=== PATIENT | male | born 1970 ===

== ENCOUNTER 2018-10-15 09:44 | Day surgery (SDC) | payer OTHER ==
[2018-10-11 08:36] VITALS: BMI 29.1
[2018-10-15] MEDS ORDERED: Clindamycin 600mg/50ml NS 0 MG/0 ML BAG IVPB ONE (10:45)
[2018-10-15] MEDS ORDERED: Lidocaine/Epinephrine 1% 1:100000 10 ML IJ ONE (10:45)
[2018-10-15] MEDS ORDERED: Bupivacaine 0.25% 20 ML INJ IJ ONE (10:46)
[2018-10-15] MEDS ORDERED: Midazolam 2 MG/2 ML VIAL ONE (11:03)
[2018-10-15] MEDS ORDERED: Propofol 10 mg/ml Inj (20 ML) ONE ×2 (11:04→11:25)
[2018-10-15] MEDS ORDERED: Vancomycin 1 gm/D5W 200 ml 1 GM/200 ML BAG IVPB ONE (11:07)
[2018-10-15] MEDS ORDERED: Lidocaine Hydrochloride 10 ML INJ ONE (11:08)
[2018-10-15] MEDS ORDERED: HYDROmorphone 0.5 mg/0.5 ml ISec IVP PRN (12:09)
--- NOTE | 2018-10-15 12:15 | PCM.SURG1 ---
Surgeon's Initial Post Op Note - Surgeon's Notes Surgeon: Dr. Steward Gun Sealing Machine Operator: Dr. Solano PGY2 Type of Anesthesia: General LMA, Local Anesthesia Administered By: Dr. Negron Pre-Operative Diagnosis: Right forehead lesion Operative Findings: see operative report Post-Operative Diagnosis: same Operation Performed: Excision of right forehead lipoma Specimen/Specimens Removed: right forehead lipoma Estimated Blood Loss: EBL {In ML}: 20 Blood Products Given: N/A Drains Used: No Drains Post-Op Condition: Good Date of Surgery/Procedure: 10/15/18 Time of Surgery/Procedure: 12:14
[2018-10-15 13:40] VITALS: RESP 18
[2018-10-15 14:05] VITALS: BP 126/92; PULSE 65; TEMP 97.8; O2SAT 98
--- NOTE | 2018-10-18 04:59 | OP ---
PROCEDURE DATE: 10/15/2018 PREOPERATIVE DIAGNOSIS: Right forehead lesion. POSTOPERATIVE DIAGNOSIS: Right forehead lesion. PROCEDURE DONE: 1. Excision of the lipoma of the right forehead. 2. Layered closure of the wound, right forehead, 2 x 1 cm size. The size of the lipoma was 1 x 1 cm in size. ANESTHESIA: General anesthesia with LMA. ESTIMATED BLOOD LOSS: Around 20 mL. DRAINS: None. PATHOLOGY: The lipoma was sent for the pathology. COMPLICATIONS: None. INTRAOPERATIVE FINDINGS: The patient had lipoma of the right forehead just above the right eyebrow. DESCRIPTION OF PROCEDURE: On intraoperative steps, this 47-year-old male was diagnosed with a lipoma of the right forehead and the patient was consented for the excision of the lipoma, brought to the OR, and placed supine on the operating table. After induction of the anesthesia, the right forehead was prepped and draped in usual sterile fashion. The right eye was completely protected with multiple Tegaderms and after that the transverse incision was made in the skin crease and upper and lower flaps were created. The lipoma was completely excised and it was sent off the table for the pathology. There was proper hemostasis in each and every part of the procedure. Now, the wound was closed in a two-layer, the deep subcu with 3-0 Vicryl, skin with a 4-0 Monocryl, and dry sterile dressing was applied. The patient tolerated the procedure well. Count of instrument and gauze was correct. There was no apparent complication. Pio Steward MD
== END 2018-10-15 14:14 | disposition home or self-care (01) ==
LOC: C.SDS 09:44
PROVIDERS: ATTEND Surgery Surgical Critical Care
DX: D17.0 Benign lipomatous neoplasm of skin and subcutaneous tissue of head, face and neck (principal)
CPT/HCPCS: 11442; 12052; 88304; J1170; J2250; J2704; J3010; J3370